=== PATIENT | female | born 1935 | race Two or more races ===

== ENCOUNTER → 2018-05-09 | Emergency (ER) | payer OTHER ==
[~2018-05-09] VITALS: Ht 157.5 cm; Wt 34.0 kg
[~2018-05-09] MED LIST: ATORVASTATIN CA20 MG; CLOPIDOGREL BIS75 MG; IRBESARTAN150 MG; LANTUS100 U/ML; PENTOXIFYLLINE400 MG; TENTRAL
== END | disposition designated cancer center or children's hospital (05) ==
LOC: ER 01:26
DX: H11.31 Conjunctival hemorrhage, right eye (principal); S05.01XA Injury of conjunctiva and corneal abrasion without foreign body, right eye, initial encounter; W45.8XXA Other foreign body or object entering through skin, initial encounter; Y93.89 Activity, other specified; Y92.89 Other specified places as the place of occurrence of the external cause; Y99.8 Other external cause status

== ENCOUNTER 2018-07-03 03:03 | Emergency (ER) | payer OTHER ==
[~2018-07-03] VITALS: Ht 152.4 cm; Wt 43.1 kg
== END 2018-07-03 11:17 | disposition home or self-care (01) ==
LOC: ER 03:03
DX: E11.649 Type 2 diabetes mellitus with hypoglycemia without coma (principal); I50.9 Heart failure, unspecified

== ENCOUNTER 2018-09-14 09:38 | Emergency (ER) | payer OTHER ==
[~2018-09-14] VITALS: Wt 38.6 kg
== END 2018-09-14 17:08 | disposition left against medical advice (07) ==
LOC: ER 09:38
DX: E16.1 Other hypoglycemia (principal)